=== PATIENT | male | born 1985 | race African-American/Black ===

== ENCOUNTER 2018-09-15 22:27 | Emergency (ER) | payer OTHER ==
[2018-09-15 22:34] VITALS: BP 121/78; PULSE 70; TEMP 97.9; BMI 26.6
[2018-09-15] MEDS ORDERED: IBUPROFEN 600 MG TABLET (FP) PO ONE ×2 (23:23→23:28)
--- NOTE | 2018-09-15 23:28 | PDOC ---
History of Present Illness - General Chief Complaint: Cold Symptoms Stated Complaint: PAIN Time Seen by Provider: 09/15/18 23:15 History Source: Patient Exam Limitations: No Limitations - History of Present Illness Initial Comments: 09/15/18 23:24 HISTORY OF PRESENT ILLNESS: 33-year-old male denies medical history presents emergency Department with 2 weeks of dry cough and atraumatic left shoulder pain. Patient denies any fevers, chills, chest pain, shortness of breath. Denies striking his shoulder any trauma. Denies any sick contacts or sore throat. No recent travel or sick contacts. PAST MEDICAL HISTORY: Denies past medical history SURGICAL HISTORY: Denies ALLERGIES: No known drug allergies REVIEW OF SYSTEMS General/Constitutional: Denies fever or chills. Denies weakness, weight change. HEENT: Denies change in vision. Denies ear pain or discharge. Denies sore throat. Cardiovascular: Denies chest pain or shortness of breath. Respiratory: Dry cough. Denies wheezing, or hemoptysis. Gastrointestinal: Denies nausea, vomiting, diarrhea or constipation. Denies rectal bleeding. Genitourinary: Denies dysuria, frequency, or change in urination. Musculoskeletal: +Left shoulder pain. Denies neck or back pain. Skin and breasts: Denies rash or easy bruising. Neurologic: Denies headache, vertigo, loss of consciousness, or loss of sensation. Psychiatric: Denies depression or anxiety. Endocrine: Denies increased thirst. Denies abnormal weight change. Hematologic/Lymphatic: Denies anemia, easy bleeding, or history of blood clots. Allergic/Immunologic: Denies hives or skin allergy. Denies latex allergy. PHYSICAL EXAM General Appearance: Well-appearing, appropriately dressed. No apparent distress , no intoxication. HEENT: EOMI, PERRLA, normal voice, TMs normal. No conjunctival pallor. No photophobia, scleral icterus. +cobblestoning in posterior OP. Neck: Supple. Trachea midline. No tenderness, rigidity, carotid bruit, stridor , lymphadenopathy, or thyromegaly. Respiratory/Chest: Lungs CTAB. No shortness of breath, chest tenderness, respiratory distress, accessory muscle use. No crackles, rales, rhonchi, stridor , wheezing, dullness Cardiovascular: RRR. S1, S2. No JVD, murmur, bradycardia, tachycardia. Musculoskeletal/Extremities: Normal inspection. Normal capillary refill. Pelvis Stable. No CVA tenderness. No tenderness to extremities, pedal edema, swelling, erythema or deformity. Patient unable to abduct shoulder greater than 90 due to pain. No palpable deformity or crepitus present. Program Director/Music Director strength 5/5. Integumentary: Appropriate color, dry, warm. No cyanosis, erythema, jaundice or rash Neurologic: pooling operator II-XII intact. Fully oriented, alert. Appropriate mood/affect. Motor strength 5/5. No appreciable EOM palsy, facial droop or sensory deficit. Past History - Past Medical History Allergies/Adverse Reactions: Allergies Allergy/AdvReac Type Severity Reaction Status Date / Time No Known Allergies Allergy Verified 01/06/14 13:35 Home Medications: Ambulatory Orders NK [No Known Home Medication] 01/06/14 Cancer: No Cardiac Disorders: No CVA: No COPD: No CHF: No DVT: No - Surgical History Abdominal Surgery: No Appendectomy: No Cholecystectomy: No - Suicide/Smoking/Psychosocial Hx Smoking Status: No Smoking History: Never smoked Number of Cigarettes Smoked Daily: 0 Information on smoking cessation initiated: No Hx Alcohol Use: No Drug/Substance Use Hx: No Substance Use Type: None *Physical Exam - Vital Signs Last Vital Signs Temp Pulse Resp BP Pulse Ox 97.9 F 70 20 121/78 99 09/15/18 22:32 09/15/18 22:32 09/15/18 22:32 09/15/18 22:32 09/15/18 22:32 Moderate Sedation - Procedure Monitoring Vital Signs: Procedure Monitoring Vital Signs Temperature 97.9 F 09/15/18 22:32 Pulse Rate 70 09/15/18 22:32 Respiratory Rate 20 09/15/18 22:32 Blood Pressure 121/78 09/15/18 22:32 O2 Sat by Pulse Oximetry (%) 99 09/15/18 22:32 ED Treatment Course - RADIOLOGY Radiology Studies Ordered: Category Date Time Status SHOULDER-LEFT [RAD] Stat Radiology 09/15/18 23:23 Ordered Medical Decision Making - Medical Decision Making 09/15/18 23:24 A/P: 33-year-old male with 2 weeks of dry cough and atraumatic left shoulder pain Cobblestoning noted in the posterior oropharynx No tonsillar erythema, lesions or exudates noted Speaking full sentences Respirations even and unlabored Lungs clear to auscultation bilaterally Chest nontender Patient unable to abduct left shoulder greater than 90 secondary to pain Program Director/Music Director strength 5/5 bilaterally Physical symptoms of the oropharynx, but the cough is consistent with an upper respiratory infection causing irritated airways. Motrin, shoulder x-ray, reassess 09/16/18 00:19 X-ray of the left shoulder as read by me: No acute fractures or dislocations noted. Y view reveals maintained alignment. Patient is improved after receiving Motrin. Discharge home I discussed the physical exam findings, ancillary test results and final diagnoses with the patient. I answered all of the patient's questions. The patient was satisfied with the care received and felt comfortable with the discharge plan and treatment plan. The patient will call their primary care physician within 24 hours to arrange follow-up and will return to the Emergency Department with any new, persistent or worsening symptoms. *DC/Admit/Observation/Transfer Diagnosis at time of Disposition: Acute pain of left shoulder URI (upper respiratory infection) Qualifiers: URI type: unspecified viral URI Qualified Code(s): J06.9 - Acute upper respiratory infection, unspecified - Discharge Dispostion Disposition: HOME Condition at time of disposition: Stable Decision to Admit order: No - Referrals Referrals: Kolby Pineda MD [Staff Physician] - - Patient Instructions Printed Discharge Instructions: DI for Viral Upper Respiratory Infection -- Adult Additional Instructions: Rest, drink lots of fluids: Teas, water, soups, Pedialyte Saltwater gargles Steamy showers/seem to face break up mucus Avoid contact with others until fevers and cough resolved Lots of handwashing and good hygiene Continue [id number] medications for symptomatic relief Tylenol or Motrin for fever and pain Followup with private physician in one to 2 days as needed You have been given a referral for orthopedist. If your shoulder pain worsens, call for an appointment. Return to emergency department for worsened symptoms, fevers, dehydration - Post Discharge Activity Forms/Work/School Notes: Back to Work
== END 2018-09-16 00:32 | disposition home or self-care (01) ==
LOC: JERFT 22:27 → JER 22:27
DX: J06.9 Acute upper respiratory infection, unspecified (principal); M25.512 Pain in left shoulder
CPT/HCPCS: 73030-TC-LT-FY; 99281-25

== ENCOUNTER 2019-01-18 20:35 | Emergency (ER) | payer OTHER ==
--- NOTE | 2019-01-18 20:49 | PDOC ---
Rapid Medical Evaluation Time Seen by Provider: 01/18/19 20:47 Medical Evaluation: Allergies Allergy/AdvReac Type Severity Reaction Status Date / Time No Known Allergies Allergy Verified 01/06/14 13:35 01/18/19 20:47 I have performed a brief in-person evaluation of this patient. The patient presents with a chief complaint of: itching eyes/ body aches Pertinent physical exam findings: no rashes/ lesions/ no cough/ eyes clear I have ordered the following: nothing The patient will proceed to the ED for further evaluation. Discharge Disposition - Diagnosis Itching - Referrals - Patient Instructions - Post Discharge Activity
[2019-01-18 20:52] VITALS: BP 128/71; PULSE 70; TEMP 98; BMI 26.6
--- NOTE | 2019-01-18 21:24 | PDOC ---
History of Present Illness - General Chief Complaint: Cold Symptoms Stated Complaint: FEELS TIRED Time Seen by Provider: 01/18/19 20:47 History Source: Patient - History of Present Illness Timing/Duration: reports: other Past History - Past Medical History Allergies/Adverse Reactions: Allergies Allergy/AdvReac Type Severity Reaction Status Date / Time No Known Allergies Allergy Verified 01/06/14 13:35 Home Medications: Ambulatory Orders NK [No Known Home Medication] 01/06/14 Cancer: No Cardiac Disorders: No CVA: No COPD: No CHF: No DVT: No - Surgical History Abdominal Surgery: No Appendectomy: No Cholecystectomy: No - Suicide/Smoking/Psychosocial Hx Smoking Status: No Smoking History: Never smoked Number of Cigarettes Smoked Daily: 0 Hx Alcohol Use: No Drug/Substance Use Hx: No Substance Use Type: None Review of Systems - Review of Systems Constitutional: No: Chills, Fever HEENTM: Yes: Throat Pain. No: Ear Pain Respiratory: Yes: Cough. No: Shortness of Breath ABD/GI: No: Diarrhea, Nausea, Vomiting *Physical Exam - Vital Signs Last Vital Signs Temp Pulse Resp BP Pulse Ox 98 F 70 20 128/71 100 01/18/19 20:48 01/18/19 20:48 01/18/19 20:48 01/18/19 20:48 01/18/19 20:48 - Physical Exam General Appearance: Yes: Appropriately Dressed. No: Apparent Distress HEENT: positive: Normal ENT Inspection, Normal Voice. negative: Scleral Icterus (R), Scleral Icterus (L) Neck: positive: Supple. negative: Lymphadenopathy (R), Lymphadenopathy (L) Respiratory/Chest: positive: Lungs Clear, Normal Breath Sounds. negative: Respiratory Distress Cardiovascular: positive: Regular Rate, S1, S2 Integumentary: positive: Dry, Warm Neurologic: positive: Fully Oriented, Alert, Normal Mood/Affect Medical Decision Making - Medical Decision Making 01/18/19 21:22 33-year-old male, no significant history, here with body aches with cough, sore throat and itching to bilateral eyes 3 days. No shortness of breath, chest pain, nausea, vomiting, diarrhea, fever or chills. No known sick contacts or recent travel. Patient well-appearing and stable with unremarkable exam. Most likely viral syndrome. No utility in testing given duration of symptoms. Will dc with supportive treatment *DC/Admit/Observation/Transfer Diagnosis at time of Disposition: Viral syndrome - Discharge Dispostion Disposition: HOME Condition at time of disposition: Good - Referrals - Patient Instructions Printed Discharge Instructions: DI for Viral Syndrome Additional Instructions: You most likely has a viral illness. Rest, drink plenty of fluids, take Tylenol or Motrin for pain and take Benadryl , Claritin or Zyrtec [id number] for itching as needed - Post Discharge Activity Forms/Work/School Notes: Back to Work
== END 2019-01-18 21:23 | disposition home or self-care (01) ==
LOC: JERFT 20:35 → JER 20:35 → JERFT 21:23
DX: B34.9 Viral infection, unspecified (principal)
CPT/HCPCS: 99281-25

== ENCOUNTER 2021-02-19 14:45 | Emergency (ER) | payer OTHER ==
[2021-02-19 14:59] VITALS: BP 154/89; PULSE 82; TEMP 98.1; BMI 27.3
[2021-02-19] MEDS ORDERED: KETOROLAC TROMETHAMINE 30 MG/1 ML VIAL IM ONE (15:29)
[2021-02-19] MEDS ORDERED: diazePAM 5 MG TABLET PO ONE (15:29)
[2021-02-19] MEDS ORDERED: diazePAM 5 MG TABLET ONE (15:32)
[2021-02-19] MEDS ORDERED: KETOROLAC TROMETHAMINE 30 MG/1 ML VIAL ONE (15:32)
[2021-02-19] MEDS ORDERED: LIDOCAINE 5% TOPICAL PATCH TP ONE (16:26)
[2021-02-19] MEDS ORDERED: ACETAMINOPHEN 500 MG TABLET (FP) PO ONE (16:26)
[2021-02-19] MEDS ORDERED: ACETAMINOPHEN 500 MG TABLET (FP) ONE (16:29)
[2021-02-19] MEDS ORDERED: LIDOCAINE 5% TOPICAL PATCH ONE (16:29)
[2021-02-19] MEDS ORDERED: LIDOCAINE PATCH REMOVAL MC SCH (22:00)
== END 2021-02-19 16:44 | disposition home or self-care (01) ==
LOC: JERFT 14:45
PROC: 3E0233Z Introduction of Anti-inflammatory into Muscle, Percutaneous Approach (ICD-10-PCS; principal; 2021-02-19)
DX: M62.838 Other muscle spasm (principal)
CPT/HCPCS: 99284-25

== ENCOUNTER 2023-01-15 08:47 | Emergency (ER) | payer OTHER ==
[2023-01-15 08:52] VITALS: BP 121/75; PULSE 81; RESP 18; TEMP 98.2; BMI 26.6
[2023-01-15] MEDS ORDERED: ACETAMINOPHEN 500 MG TABLET (FP) PO ONE (10:08)
[2023-01-15] MEDS ORDERED: ACETAMINOPHEN 500 MG TABLET (FP) ONE (10:16)
== END 2023-01-15 10:19 | disposition home or self-care (01) ==
LOC: JER 08:47 → JERFT 08:47
DX: J06.9 Acute upper respiratory infection, unspecified (principal); B97.89 Other viral agents as the cause of diseases classified elsewhere; R06.7 Sneezing; R09.81 Nasal congestion; M79.10 Myalgia, unspecified site; R68.83 Chills (without fever); R05.1 Acute cough; R43.9 Unspecified disturbances of smell and taste; Z20.822 Contact with and (suspected) exposure to COVID-19
CPT/HCPCS: 0241U-QW; 71046-TC-FY; 99284-25